=== PATIENT | male | born 1945 | race Caucasian/White ===

== ENCOUNTER 2018-05-17 12:56 | Inpatient (IN) ==
[2018-05-17] MEDS ORDERED: 0.9 % Sodium Chloride 1,000 ML IVC ONE (13:11)
[2018-05-17] MEDS ORDERED: Vancomycin 1,000 MG VIAL IVPB ONE (13:11)
[2018-05-17] MEDS ORDERED: Piperacillin/Tazobactam 3.375 GM in 0.9 % Sodium Chloride Mini Bag 100 ML IVPB ONE (13:11)
[2018-05-17] MEDS ORDERED: Isovue-370 500 ML INFUS..BTL IV ONE (13:11)
[2018-05-17 13:40] LABS: Basophils % 0.3 %; Eosinophils # 0.3 K/mcL (0.0-0.6); Eosinophils % 2.7 %; Hematocrit 44.7 % (37.5-50.1); Hemoglobin 15.6 g/dL (12.9-16.9); Immature Granulocytes % 0.2 % (0-4); Lymphocytes # 3.7 K/mcL (0.6-4.6); Lymphocytes % 40.1 %; Mean Corpuscular HGB Conc 34.9 g/dL (31.6-35.5); Mean Corpuscular Hemoglobin 30.2 pg (28.0-33.3); Mean Corpuscular Volume 86.6 fL (83.0-100.0); Mean Platelet Volume 9.6 fL (9.4-12.4); Monocytes # 0.8 K/mcL (0.0-1.3); Monocytes % 8.9 %; Neutrophils # 4.5 K/mcL (1.6-8.9); Platelet Count 221 K/mcL (140-400); Red Blood Count 5.16 M/mcL (4.19-5.50); Red Cell Distribution Width 13.5 % (11.5-14.5); Segmented Neutrophils % 47.8 %
[2018-05-17 13:56] LABS: BUN/Creatinine Ratio 26 (6-26); Blood Urea Nitrogen 21 mg/dL (8-23); Calcium 9.7 mg/dL (8.6-10.3); Carbon Dioxide 25 mEq/L (23-29); Chloride 103 mEq/L (98-107); Glucose 141 mg/dL (70-105); Osmolality,Calculated 283 (280-300); Potassium 4.4 mEq/L (3.5-5.1); Sodium 134 mEq/L (136-145); eGFR For Non-African Americans > 60 (> 60)
--- NOTE | 2018-05-17 14:20 | Emergency Department Note ---
Disposition Clinical Impression: Abscess of finger Qualifiers: Laterality: right Qualified Code(s): L02.511 - Cutaneous abscess of right hand Disposition: Admitted As Inpatient Condition: Good [facility] Provider[facility] - Forms: ED Satisfaction Letter Time of Disposition: 16:16 Skin/Abscess/FB HPI Chief complaint: ED Skin/Abscess/Foreign Body Stated complaint: Splinter in finger Time Seen by Provider: 05/17/18 13:01 Source: patient HPI Narrative: 73 yo male presents with foreign body in [facility] by [facility]. He was working in the yard 11 days ago and the following morning, he had a small sore area at his right 5th DIP volar aspect. He thought the hairs were infected, so he pulled the hairs out. In the days that followed, he had swelling and redness of his finger. He went to the [place] [facility] 2 days ago and was given "a shot" and an antibiotic that is "a big white pill." He states that the swelling is somewhat improved from 2 days prior, but the size of the redness continues to grow. He went to the [place] ER today, who took an x-ray of his finger nad told him he had a splinter "deep" in his finger before transferring him here. Home Medications Medication Instructions Recorded Confirmed Baclofen [Lioresal] 5 mg PO TID 05/17/18 05/17/18 Cetirizine HCl [All Day Allergy] 10 mg PO DAILY 05/17/18 05/17/18 Cholecalciferol (D-3) [Vitamin D] 1,000 unit PO DAILY 05/17/18 05/17/18 Clopidogrel [Plavix] 75 mg PO DAILY 05/17/18 05/17/18 Docusate [Colace] 200 mg PO HS 05/17/18 05/17/18 Dulaglutide [Trulicity] 0.75 mg SQ Q7D 05/17/18 05/17/18 Duloxetine HCl [Cymbalta] 60 mg PO BID 05/17/18 05/17/18 Fluticasone Propionate Nasal 2 spr NS DAILY 05/17/18 05/17/18 [Flonase] Gabapentin [Neurontin] 100 mg PO HS 05/17/18 05/17/18 Insulin Glargine [Lantus] 60 unit SQ QAM 05/17/18 05/17/18 Isosorbide MONOnitrate (24 HR) 30 mg PO DAILY 05/17/18 05/17/18 [Imdur] Losartan Potassium [Cozaar] 50 mg PO DAILY 05/17/18 05/17/18 Meclizine HCl [Verticalm] 25 mg PO Q6H 05/17/18 05/17/18 Metformin HCl [Glucophage] 1,000 mg PO BID 05/17/18 05/17/18 Metoprolol [Lopressor] 50 mg PO DAILY 05/17/18 05/17/18 [place]-3/Dha/Epa/Fish Oil [Fish Oil 1 cap PO DAILY 05/17/18 05/17/18 1,000 mg Softgel] Rosuvastatin [Crestor] 40 mg PO HS 05/17/18 05/17/18 Tamsulosin HCl [Flomax] 0.4 mg PO HS 05/17/18 05/17/18 Vit A/Vit C/Vit E/Zinc/Copper 1 tab PO DAILY 05/17/18 05/17/18 [Preservision Areds Tablet] hydroCHLOROthiazide 12.5 mg PO DAILY 05/17/18 05/17/18 [Hydrochlorothiazide] Allergies Allergy/AdvReac Type Severity Reaction Status Date / Time [id number] Reductase Allergy Redness of Verified 05/17/18 13:03 Inhibitor Skin Constitutional: Denies: fever, chills Gastrointestinal: Reports: constipation (chronic). Denies: abdominal pain, nausea, vomiting, diarrhea Genitourinary: Denies: dysuria Neurological: Denies: headache, weakness, confusion Past Medical History - Past Medical History Medical history: Reports: cancer, coronary artery disease, diabetes, myocardial infarction Psychiatric history: Reports: no psych history - Social History Smoking Status: Former smoker Alcohol use: Reports: none Drug use: Reports: none Physical Exam - General Limitations: no limitations General appearance: alert, in no apparent distress - Head Head exam: atraumatic, normocephalic, normal inspection - Eye Eye exam: Present: normal appearance - ENT ENT exam: mucous membranes moist - Neck Neck exam: Present: normal inspection - Chest Chest inspection: Present: normal inspection - Respiratory Respiratory exam: Present: normal lung sounds bilaterally - Cardiovascular Cardiovascular exam: Present: regular rate, normal rhythm, normal heart sounds - Abdominal Exam Abdominal exam: Present: soft, Non-Tender. Absent: tenderness, distention, guarding, rebound, rigidity - Extremities Exam Extremities exam: Present: other (posterior tibial pulses +2/4 bilateral). Absent: pedal edema - Expanded Upper Extremity Exam Hand exam: Present: tenderness (right 5th digit), swelling (right 5th digit), erythema (volar aspect of right 5th digit ), other (small (2-3mm) ulceration following patient removal of purulence at right 5th DIP volar aspect). Absent: normal inspection - Neurological Exam Neurological exam: Present: alert, oriented X3 - Psychiatric Psychiatric exam: Present: normal affect, normal mood Course Course Narrative: 73 yo male with 10 day history of sore to right 5th DIP. Over the course of 10 days he has had progressive erythema and swelling. He was seen at [facility] days ago and given a shot and started on oral antibiotics, but the erythema continued to worsen. No palpable abscess. CT of hand negative for foreign body. Plan to admit to hospital for IV antibiotics. Spoke to Dr. Gustafson, hand surgery, who agrees with plan of IV antibiotics and will see patient in consulation. Spoke to Dr. Rolle, hospitalist, who agrees to admit patient. - Consultations Consultation #1: Spoke to hand surgeon, Dr. Gustafson, who stated to admit to the patient for IV antibiotics and he would see the patient in consultation. Time: 16:08 Vital Signs Temperature 97.6 F 05/17/18 13:01 Pulse Rate 67 05/17/18 13:01 Respiratory Rate 18 05/17/18 13:01 Blood Pressure 120/69 05/17/18 13:01 O2 Sat by Pulse Oximetry 97 05/17/18 13:01 Temperature 97.6 F 05/17/18 13:07 Pulse Rate 67 05/17/18 13:07 Respiratory Rate 18 05/17/18 13:07 Blood Pressure 120/69 05/17/18 13:07 O2 Sat by Pulse Oximetry 97 05/17/18 13:07 Oxygen Delivery Oxygen Delivery Room Air Skin/Abscess/Foreign Body - Lab Data Result diagrams: 05/17/18 13:27 05/17/18 13:27 Lab Results 05/17/18 05/17/18 Range/Units 13:27 13:27 WBC 9.3 (4.3-11.1) K/mcL RBC 5.16 (4.19-5.50) M/mcL Hgb 15.6 (12.9-16.9) g/dL Hct 44.7 (37.5-50.1) % MCV 86.6 (83.0-100.0) fL MCH 30.2 (28.0-33.3) pg MCHC 34.9 (31.6-35.5) g/dL RDW 13.5 (11.5-14.5) % Plt Count 221 (140-400) K/mcL MPV 9.6 (9.4-12.4) fL Immature Gran % 0.2 (0-4) % Seg Neutrophils % 47.8 % Lymphocytes % 40.1 % Monocytes % 8.9 % Eosinophils % 2.7 % Basophils % 0.3 % Neutrophils # 4.5 (1.6-8.9) K/mcL Lymphocytes # 3.7 (0.6-4.6) K/mcL Monocytes # 0.8 (0.0-1.3) K/mcL Eosinophils # 0.3 (0.0-0.6) K/mcL Basophils # 0.0 (0.0-0.2) K/mcL Sodium 134 L (136-145) mEq/L Potassium 4.4 (3.5-5.1) mEq/L Chloride 103 (98-107) mEq/L Carbon Dioxide 25 (23-29) mEq/L BUN 21 (8-23) mg/dL Creatinine 0.81 (0.70-1.30) mg/dL Est GFR ( Amer) > 60 (> 60) Est GFR (Non-Af Amer) > 60 (> 60) BUN/Creatinine Ratio 26 (6-26) Glucose 141 H (70-105) mg/dL Calculated Osmolality 283 (280-300) Calcium 9.7 (8.6-10.3) mg/dL
--- NOTE | 2018-05-17 14:24 | Emergency Department Note ---
Disposition Clinical Impression: Abscess of finger Qualifiers: Laterality: right Qualified Code(s): L02.511 - Cutaneous abscess of right hand Disposition: Admitted As Inpatient [facility] [Primary Care Provider[facility] - General Adult HPI - General Chief complaint: ED Skin/Abscess/Foreign Body Stated complaint: Splinter in finger Time Seen by Provider: 05/17/18 13:01 Source: patient - History of Present Illness Pain Scale: 5 - Related Data Home Medications Medication Instructions Recorded Confirmed Baclofen [Lioresal] 5 mg PO TID 05/17/18 05/17/18 Cetirizine HCl [All Day Allergy] 10 mg PO DAILY 05/17/18 05/17/18 Cholecalciferol (D-3) [Vitamin D] 1,000 unit PO DAILY 05/17/18 05/17/18 Clopidogrel [Plavix] 75 mg PO DAILY 05/17/18 05/17/18 Docusate [Colace] 200 mg PO HS 05/17/18 05/17/18 Dulaglutide [Trulicity] 0.75 mg SQ Q7D 05/17/18 05/17/18 Duloxetine HCl [Cymbalta] 60 mg PO BID 05/17/18 05/17/18 Fluticasone Propionate Nasal 2 spr NS DAILY 05/17/18 05/17/18 [Flonase] Gabapentin [Neurontin] 100 mg PO HS 05/17/18 05/17/18 Insulin Glargine [Lantus] 60 unit SQ QAM 05/17/18 05/17/18 Isosorbide MONOnitrate (24 HR) 30 mg PO DAILY 05/17/18 05/17/18 [Imdur] Losartan Potassium [Cozaar] 50 mg PO DAILY 05/17/18 05/17/18 Meclizine HCl [Verticalm] 25 mg PO Q6H 05/17/18 05/17/18 Metformin HCl [Glucophage] 1,000 mg PO BID 05/17/18 05/17/18 Metoprolol [Lopressor] 50 mg PO DAILY 05/17/18 05/17/18 [place]-3/Dha/Epa/Fish Oil [Fish Oil 1 cap PO DAILY 05/17/18 05/17/18 1,000 mg Softgel] Rosuvastatin [Crestor] 40 mg PO HS 05/17/18 05/17/18 Tamsulosin HCl [Flomax] 0.4 mg PO HS 05/17/18 05/17/18 Vit A/Vit C/Vit E/Zinc/Copper 1 tab PO DAILY 05/17/18 05/17/18 [Preservision Areds Tablet] hydroCHLOROthiazide 12.5 mg PO DAILY 05/17/18 05/17/18 [Hydrochlorothiazide] Allergies Allergy/AdvReac Type Severity Reaction Status Date / Time Mjeujek-Osg-Fhs Reductase Allergy Redness of Verified 05/17/18 13:03 Inhibitor Skin Past Medical History - Past Medical History Medical history: Reports: cancer, coronary artery disease, diabetes, myocardial infarction Psychiatric history: Reports: no psych history - Social History Smoking Status: Former smoker Alcohol use: Reports: none Drug use: Reports: none Course Vital Signs Temperature 97.6 F 05/17/18 13:01 Pulse Rate 67 05/17/18 13:01 Respiratory Rate 18 05/17/18 13:01 Blood Pressure 120/69 05/17/18 13:01 O2 Sat by Pulse Oximetry 97 05/17/18 13:01 Temperature 97.6 F 05/17/18 13:07 Pulse Rate 67 05/17/18 13:07 Respiratory Rate 18 05/17/18 13:07 Blood Pressure 120/69 05/17/18 13:07 O2 Sat by Pulse Oximetry 97 05/17/18 13:07 Oxygen Delivery Oxygen Delivery Room Air Medical Decision Making - Lab Data Result diagrams: 05/17/18 13:27 05/17/18 13:27 Lab Results 05/17/18 05/17/18 Range/Units 13:27 13:27 WBC 9.3 (4.3-11.1) K/mcL RBC 5.16 (4.19-5.50) M/mcL Hgb 15.6 (12.9-16.9) g/dL Hct 44.7 (37.5-50.1) % MCV 86.6 (83.0-100.0) fL MCH 30.2 (28.0-33.3) pg MCHC 34.9 (31.6-35.5) g/dL RDW 13.5 (11.5-14.5) % Plt Count 221 (140-400) K/mcL MPV 9.6 (9.4-12.4) fL Immature Gran % 0.2 (0-4) % Seg Neutrophils % 47.8 % Lymphocytes % 40.1 % Monocytes % 8.9 % Eosinophils % 2.7 % Basophils % 0.3 % Neutrophils # 4.5 (1.6-8.9) K/mcL Lymphocytes # 3.7 (0.6-4.6) K/mcL Monocytes # 0.8 (0.0-1.3) K/mcL Eosinophils # 0.3 (0.0-0.6) K/mcL Basophils # 0.0 (0.0-0.2) K/mcL Sodium 134 L (136-145) mEq/L Potassium 4.4 (3.5-5.1) mEq/L Chloride 103 (98-107) mEq/L Carbon Dioxide 25 (23-29) mEq/L BUN 21 (8-23) mg/dL Creatinine 0.81 (0.70-1.30) mg/dL Est GFR ( Amer) > 60 (> 60) Est GFR (Non-Af Amer) > 60 (> 60) BUN/Creatinine Ratio 26 (6-26) Glucose 141 H (70-105) mg/dL Calculated Osmolality 283 (280-300) Calcium 9.7 (8.6-10.3) mg/dL Attestation Statement - Attestation Attestation: I examined this patient and my medical decision-making was reviewed with the Resident Physician. I agree with the documented findings, disposition and treatment plan as described except to the extent set forth below. 73 year old male [facility] and believes there is a wooden gilda in the finger and states that this occured a few days ago while he was mowing his lawn. HE is a diabetic wihtout history of MRSA. Patient states that he has been on outpatinet therapy with antbiotics and it is getting worse. WE will do a CT with focused infectious workup and then consult hand surgery and admit. vanco/zosyn started with fluids
[2018-05-17] MEDS ORDERED: *HR* OxyCODONE Immed Rel 5 MG TABLET PO PRN (17:52)
[2018-05-17] MEDS ORDERED: traMADol 50 MG TABLET PO PRN (17:52)
[2018-05-17] MEDS ORDERED: Acetaminophen 325 MG TABLET PO PRN (17:52)
[2018-05-17] MEDS ORDERED: Naloxone 0.4 MG/ML INJ IVP PRN (17:52)
[2018-05-17] MEDS ORDERED: D5% in Water 1,000 ML IVC PRN (17:55)
[2018-05-17] MEDS ORDERED: *HR* Dextrose 50 % in Water (Syg) 50 ML SYRINGE IVP PRN (17:55)
[2018-05-17] MEDS ORDERED: Dextrose Gel 15 GM/37.5 ML TUBE PO PRN ×2 (17:55)
--- NOTE | 2018-05-17 17:57 | Internal Med History&Physical ---
Date of Encounter: 05/17/18 Time of Encounter: 17:57 Internal Medicine - H&P: HPI Chief complaint: Right 5th finger infection Admitted From: Emergency Dept Plans for Post Hospital Care: Home History of present illness: Mr. Martínez is a 73 year old male with history of hypertension, diabetes, CAD , who presents with complaints of pain and swelling in right fifth finger. Patient was working in his yard about 8-9 days ago, when he thought he pricked his right 5th finger. Following this, he noticed a small pimple-like swelling over the middle of his finger, which has been getting bigger with associated redness and pain. No drainage noted until today, when it started leaking serous purulent fluid. No associated fever, chills, nausea, vomiting. No chest pain or shortness of breath or any other complaints. He has been able to open and close his right fifth finger, no loss of sensation or bluish discoloration of his finger. He presented to urgent care at the [facility] 2 days ago, received an intramuscular injection and was discharged on oral antibiotics, he does not remember the name. X-ray done on that day was apparently normal. He was asked to come back for a recheck today, repeat x-ray showed a possible foreign body embedded in fifth finger soft tissue and he was sent to our emergency room for further workup. Past Med Surg Social Fam HX - Past Medical History Source: patient Medical history: cancer (Prostate cancer), coronary artery disease, diabetes, hypertension, myocardial infarction Additional medical history: prostate ca Psychiatric history: no psych history - Past Surgical History Surgical History: knee replacement (Bilateral total knee replacement), orthopedic, other (Bilateral shoulder replacement), prostatectomy - Social History Smoking Status: Former smoker Alcohol use: none Drug use: none Occupational status: retired Current living situation: Home, With Family Activity Level: Independent ambulation Recent Out of Country Travel Within the Last 8 Weeks: No Exposure or Possible Exposure to Illness During Travel: No - Family History Father Hx Family Cancer: Yes (lung cancer) Hx Family Endocrine Disorder: Yes (DM) Internal Medicine - H&P: Meds Baclofen [Lioresal] 5 mg PO TID 05/17/18 [History] Cetirizine HCl [All Day Allergy] 10 mg PO DAILY 05/17/18 [History] Cholecalciferol (D-3) [Vitamin D] 1,000 unit PO DAILY 05/17/18 [History] Clopidogrel [Plavix] 75 mg PO DAILY 05/17/18 [History] Docusate [Colace] 200 mg PO HS 05/17/18 [History] Dulaglutide [Trulicity] 0.75 mg SQ Q7D 05/17/18 [History] Duloxetine HCl [Cymbalta] 60 mg PO BID 05/17/18 [History] Fluticasone Propionate Nasal [Flonase] 2 spr NS DAILY 05/17/18 [History] Gabapentin [Neurontin] 100 mg PO HS 05/17/18 [History] Insulin Glargine [Lantus] 60 unit SQ QAM 05/17/18 [History] Isosorbide MONOnitrate (24 HR) [Imdur] 30 mg PO DAILY 05/17/18 [History] Losartan Potassium [Cozaar] 50 mg PO DAILY 05/17/18 [History] Meclizine HCl [Verticalm] 25 mg PO Q6H 05/17/18 [History] Metformin HCl [Glucophage] 1,000 mg PO BID 05/17/18 [History] Metoprolol [Lopressor] 50 mg PO DAILY 05/17/18 [History] [place]-3/Dha/Epa/Fish Oil [Fish Oil 1,000 mg Softgel] 1 cap PO DAILY 05/17/18 [ History] Rosuvastatin [Crestor] 40 mg PO HS 05/17/18 [History] Tamsulosin HCl [Flomax] 0.4 mg PO HS 05/17/18 [History] Vit A/Vit C/Vit E/Zinc/Copper [Preservision Areds Tablet] 1 tab PO DAILY [History] hydroCHLOROthiazide [Hydrochlorothiazide] 12.5 mg PO DAILY 05/17/18 [History] 3 Allergy/AdvReac Type Severity Reaction Status Date / Time [id number] Reductase Allergy Redness of Verified 05/17/18 13:03 Inhibitor Skin All Systems PM: A 10-system review of systems was performed and is negative for pertinent findings except as documented above in the HPI. - Constitutional Constitutional: no chills, no fever(s), no night sweats - EENT Eyes: no change in vision, no discharge, no pain, no photophobia Ears: no ear discharge, no ear pain, no tinnitus Nose, mouth and throat: no dysphagia, no nasal discharge, no neck pain, no sore throat - Cardiovascular Cardiovascular ROS IM: no chest pain, no diaphoresis, no dyspnea, no lightheadedness, no palpitations, no syncope - Respiratory Respiratory: no cough, no dyspnea, no wheezing, no excessive phlegm production - Gastrointestinal Gastrointestinal: no abdominal pain, no diarrhea, no hematemesis, no hematochezia, no melena, no nausea, no vomiting - Musculoskeletal Musculoskeletal ROS IM: limited range of motion - Integumentary Integumentary IM: as per HPI, erythema, skin ulcer - Neurological Neurological ROS: no confusion, no convulsions, no focal weakness, no numbness, no tingling, no tremor(s) - Hematologic/Lymphatic Hematologic/Lymphatic: no easy bruising - Constitutional Vitals: Temp Pulse Resp BP Pulse Ox 97.6 F 72 14 110/69 97 05/17/18 13:07 05/17/18 16:13 05/17/18 16:13 05/17/18 16:13 05/17/18 16:13 General appearance: Present: A&O X 3, answers questions appropriately Exam: . - Respiratory Respiratory exam: Present: CTAB (coarse breath sounds B/L), rhonchi ( intermittent). Absent: accessory muscle use, rales, wheezes - Cardiovascular Cardiovascular exam: Present: RRR, +S1, +S2. Absent: diastolic murmur, gallop, rubs, systolic murmur - GI/Abdominal GI/Abdominal exam: Present: normal bowel sounds, soft, no peritoneal signs. Absent: distended, tenderness - Extremities Exam Extremities exam: Present: warm, radial pulses palpable and symmetrical. Absent : calf tenderness, cyanotic, pedal edema Additional comments: right 5th finger- dorsal mid-finger around PIP joint- small open sore with significant edema, erythema and minimal seropurulent drainage; no restriction in ROM - Neurological Exam Neurological exam: Present: CN II-XII intact, oriented X3, no focal deficits. Absent: pronater drift, facial droop, speech deficit - Skin Skin exam: Present: dry, intact Internal Med - H&P Results - Labs CBC & Chem 7: 05/18/18 06:13 05/18/18 06:13 - Assessment and plan (1) Cellulitis Current Visit: Yes Status: Acute Assessment and plan: Mild cellulitis noted on dorsal right fifth finger. CT right hand done in our emergency room did not show any focal abscess or embedded foreign body. Orthopedic surgery has been consulted, follow-up recommendations. Follow up wound culture, continue IV antibiotics-vancomycin and Zosyn. Patient is very comfortable at this time, does not report pain. Pain control with when necessary Tylenol and oxycodone. Qualifiers: Site of cellulitis: extremity Site of cellulitis of extremity: finger Laterality: right Qualified Code(s): L03.011 - Cellulitis of right finger (2) Foreign body (FB) in soft tissue Current Visit: Yes Status: Suspected Assessment and plan: Plan as above. (3) CAD (coronary artery disease) Current Visit: Yes Status: Chronic Assessment and plan: Status post remote stents. Continue Plavix, statin, beta dina. Qualifiers: Coronary Disease-Associated Artery/Lesion type: [place] artery [place] vs. transplanted heart: [place] heart Associated angina: without angina Qualified Code(s): I25.10 - Atherosclerotic heart disease of [place] coronary artery without angina pectoris (4) Essential hypertension Current Visit: Yes Status: Chronic Assessment and plan: Blood pressure acceptable. Resume home medications. (5) Diabetes mellitus Current Visit: Yes Status: Chronic Assessment and plan: Blood sugars noted to be well controlled. Continue basal bolus insulin regimen. Accu-Chek blood glucose monitoring. Diabetic diet. 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
[2018-05-17] MEDS: *HR* Heparin 5,000 UNIT/ML VIAL SQ SCH (18:59)
[2018-05-17] MEDS: Baclofen 10 MG TABLET PO SCH (21:19)
[2018-05-17] MEDS: Insulin LISPRO 300 UNITS/3 ML VIAL SQ SCH (21:20)
[2018-05-17] MEDS: Gabapentin 100 MG CAPSULE PO SCH (21:20)
[2018-05-17] MEDS: Insulin DETEMIR 100 UNIT/ML X5UNITS SQ SCH (21:20)
[2018-05-18] MEDS: Piperacillin/Tazobactam 3.375 GM in 0.9 % Sodium Chloride Mini Bag 100 ML IVPB SCH ×3 (01:13→17:04)
[2018-05-18] MEDS: *HR* Heparin 5,000 UNIT/ML VIAL SQ SCH ×2 (05:23→17:05)
[2018-05-18 06:38] LABS: Basophils % 0.4 %; Eosinophils # 0.2 K/mcL (0.0-0.6); Eosinophils % 3.3 %; Hematocrit 44.9 % (37.5-50.1); Hemoglobin 15.2 g/dL (12.9-16.9); Immature Granulocytes % 0.3 % (0-4); Lymphocytes # 2.4 K/mcL (0.6-4.6); Lymphocytes % 35.3 %; Mean Corpuscular HGB Conc 33.9 g/dL (31.6-35.5); Mean Corpuscular Hemoglobin 30.2 pg (28.0-33.3); Mean Corpuscular Volume 89.3 fL (83.0-100.0); Mean Platelet Volume 10.1 fL (9.4-12.4); Monocytes # 0.8 K/mcL (0.0-1.3); Monocytes % 11.3 %; Neutrophils # 3.3 K/mcL (1.6-8.9); Platelet Count 170 K/mcL (140-400); Red Blood Count 5.03 M/mcL (4.19-5.50); Red Cell Distribution Width 13.4 % (11.5-14.5); Segmented Neutrophils % 49.4 %
[2018-05-18 06:51] LABS: BUN/Creatinine Ratio 22 (6-26); Blood Urea Nitrogen 19 mg/dL (8-23); Calcium 9.2 mg/dL (8.6-10.3); Carbon Dioxide 25 mEq/L (23-29); Chloride 103 mEq/L (98-107); Glucose 147 mg/dL (70-105); Osmolality,Calculated 287 (280-300); Potassium 3.9 mEq/L (3.5-5.1); Sodium 136 mEq/L (136-145); eGFR For Non-African Americans > 60 (> 60)
[2018-05-18] MEDS: Insulin LISPRO 300 UNITS/3 ML VIAL SQ SCH ×4 (10:59→20:45)
[2018-05-18] MEDS: hydroCHLOROthiazide 25 MG TABLET PO SCH (11:01)
[2018-05-18] MEDS: Isosorbide MONOnitrate (24 HR) 30 MG TAB.ER.24H PO SCH (11:01)
[2018-05-18] MEDS: Baclofen 10 MG TABLET PO SCH ×3 (11:01→20:44)
[2018-05-18] MEDS: Insulin DETEMIR 100 UNIT/ML X5UNITS SQ SCH ×2 (11:03→20:44)
[2018-05-18] MEDS: Fluticasone Propionate Nasal 50 MCG/SPRAY BOTTLE NS SCH (11:03)
--- NOTE | 2018-05-18 13:42 | Internal Med Progress Note ---
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 CT right hand done in our emergency room did not show any focal abscess or embedded foreign body. Orthopedic surgery has been consulted, pending recommendations. Preliminary wound culture grows staph aureus, f/uo sensitivity, continue IV antibiotics- vancomycin and Zosyn. Pain control with when necessary Tylenol and oxycodone. (2) Foreign body (FB) in soft tissue Current Visit: Yes Status: Suspected (3) CAD (coronary artery disease) Current Visit: Yes Status: Chronic Assessment and Plan: Status post remote stents. Continue Plavix, statin, beta dina. (4) Essential hypertension Current Visit: Yes Status: Chronic Assessment and Plan: Blood pressure acceptable. continue home medications. (5) Diabetes mellitus Current Visit: Yes Status: Chronic Assessment and Plan: Blood sugars noted to be fairly controlled. Continue basal bolus insulin regimen. Accu-Chek blood glucose monitoring. Diabetic diet. - Time Spent with Patient Total time spent is greater than 50% in coordination of care (as documented) at patient's floor/unit and/or counseling patient: Plan of Care Discussed with: patient Internal Medicine: Result - Labs CBC & Chem 7: 05/18/18 06:13 05/18/18 06:13 Labs: Short CBC 05/18/18 Range/Units 06:13 WBC 6.7 (4.3-11.1) K/mcL Hgb 15.2 (12.9-16.9) g/dL Hct 44.9 (37.5-50.1) % Plt Count 170 (140-400) K/mcL Neutrophils # 3.3 (1.6-8.9) K/mcL BMP 05/18/18 06:13 Sodium 136 Potassium 3.9 Chloride 103 Carbon Dioxide 25 BUN 19 Creatinine 0.87 Glucose 147 H Calcium 9.2 Consult Discharge Plan - Plan Referrals: [facility] [Outside] (1) Cellulitis Qualifiers: Site of cellulitis: extremity Site of cellulitis of extremity: finger Laterality: right Qualified Code(s): L03.011 - Cellulitis of right finger (3) CAD (coronary artery disease) Qualifiers: Coronary Disease-Associated Artery/Lesion type: [place] artery [place] vs. transplanted heart: [place] heart Associated angina: without angina Qualified Code(s): I25.10 - Atherosclerotic heart disease of [place] coronary artery without angina pectoris (5) Diabetes mellitus Qualifiers: Diabetes mellitus type: type 2 Diabetes mellitus terminal manager insulin use: with penitentiary use Diabetes mellitus complication status: with unspecified complications Qualified Code(s): E11.8 - Type 2 diabetes mellitus with unspecified complications; Z79.4 - long-term (current) use of insulin
--- NOTE | 2018-05-18 14:11 | Orthopedic Consult Note ---
Date of Encounter: 05/18/18 Time of Encounter: 13:00 Assessment and Plan (1) Cellulitis Current Visit: Yes Status: Acute CT showed no abscess formation and no foreign bodies. Continue observation for now with no surgical intervention planned as of now. Continue ROM as tolerated. Will order OT to work with patient. Begin local wound care washing with soap/water 2-3xdaily and apply dry gauze dressings each time until closed. Begin elevation of RUE. Wound culture - preliminary staph aureus Continue IV abx per hospitalist. Orthopedics will reevaluate again tomorrow. Qualifiers: Site of cellulitis: extremity Site of cellulitis of extremity: finger Laterality: right Qualified Code(s): L03.011 - Cellulitis of right finger History of Present Illness Chief complaint: right 5th finger pain and swelling HPI: Mr. Martínez is a 73 year old male who presented to the ER yesterday with increased swelling and pain to the right 5th finger. He admits to a "pimple" like area forming roughly 10 days ago which he popped and got a small amount of pus expressed. The next day started to have increased redness and swelling that have continued to worsen. The opening did scab over but then opened again a couple days later and has been draining small amount serous/purulent drainage. He recently started to notice skin peeling around this area as well. Pain described as dull that comes/goes, does radiate from finger towards hand but not into wrist but has improved some since it has been draining and feels like less pressure since then. He denies any known injury and can only think that he was weeding around that time and did get pricked by a plant. He did go to the [place] [facility] 3 days ago and was started on some antibiotic he cant remember the name of. Denies any numbness or tingling to hand or finger. Denies any other symptoms at this time, denies chest pain, SOB, fevers. He is right hand dominant. Past Med Surg Social Fam HX - Past Medical History Medical history: cancer (Prostate cancer), coronary artery disease, diabetes, hypertension, myocardial infarction Additional medical history: prostate ca Psychiatric history: no psych history - Past Surgical History Surgical History: knee replacement (Bilateral total knee replacement), orthopedic, other (Bilateral shoulder replacement), prostatectomy - Social History Smoking Status: Former smoker Alcohol use: none Drug use: none - Family History Father Hx Family Cancer: Yes (lung cancer) Hx Family Endocrine Disorder: Yes (DM) Medications and Allergies Baclofen [Lioresal] 5 mg PO TID 05/17/18 [History] Cetirizine HCl [All Day Allergy] 10 mg PO DAILY 05/17/18 [History] Cholecalciferol (D-3) [Vitamin D] 1,000 unit PO DAILY 05/17/18 [History] Clopidogrel [Plavix] 75 mg PO DAILY 05/17/18 [History] Docusate [Colace] 200 mg PO HS 05/17/18 [History] Dulaglutide [Trulicity] 0.75 mg SQ Q7D 05/17/18 [History] Duloxetine HCl [Cymbalta] 60 mg PO BID 05/17/18 [History] Fluticasone Propionate Nasal [Flonase] 2 spr NS DAILY 05/17/18 [History] Gabapentin [Neurontin] 100 mg PO HS 05/17/18 [History] Insulin Glargine [Lantus] 60 unit SQ QAM 05/17/18 [History] Isosorbide MONOnitrate (24 HR) [Imdur] 30 mg PO DAILY 05/17/18 [History] Losartan Potassium [Cozaar] 50 mg PO DAILY 05/17/18 [History] Meclizine HCl [Verticalm] 25 mg PO Q6H 05/17/18 [History] Metformin HCl [Glucophage] 1,000 mg PO BID 05/17/18 [History] Metoprolol [Lopressor] 50 mg PO DAILY 05/17/18 [History] [place]-3/Dha/Epa/Fish Oil [Fish Oil 1,000 mg Softgel] 1 cap PO DAILY 05/17/18 [ History] Rosuvastatin [Crestor] 40 mg PO HS 05/17/18 [History] Tamsulosin HCl [Flomax] 0.4 mg PO HS 05/17/18 [History] Vit A/Vit C/Vit E/Zinc/Copper [Preservision Areds Tablet] 1 tab PO DAILY [History] hydroCHLOROthiazide [Hydrochlorothiazide] 12.5 mg PO DAILY 05/17/18 [History] 3 Allergy/AdvReac Type Severity Reaction Status Date / Time Ohaefvj-[id number]-Juh Reductase Allergy Redness of Verified 05/17/18 13:03 Inhibitor Skin All Systems Reviewed: The remainder of the systems were reviewed and are negative - Constitutional Constitutional: as per HPI - Cardiovascular Cardiovascular: as per HPI - Respiratory Respiratory: as per HPI - Musculoskeletal Musculoskeletal: as per HPI Physical Exam - Constitutional Vitals: Temp Pulse Resp BP Pulse Ox 97.8 F 75 15 153/84 95 05/18/18 10:29 05/18/18 10:29 05/18/18 10:29 05/18/18 10:29 05/18/18 10:29 - Wrist & Hand right Location of pain: small finger (erythema and swelling noted to dorsal small finger over proximal and middle phalanx which does not reach the DIPJ or MCPJ with skin sloughing and small opening over middle phalanx with small amount purulent drainage. Mild tenderness to palpation on dorsal side of finger. No tenderness to palpation on volar side of finger. No palpable fluctuancefull active extension and almost full active flexion of small finger with minimal stiffness. brisk cap refill distally, grossly NV intact. ) Results - Labs Result Diagrams: 05/18/18 06:13 05/18/18 06:13 Labs: Abnormal lab results Glucose 147 mg/dL (70-105) H 05/18/18 06:13 POC Glucose 177 mg/dL (70-99) H 05/18/18 08:03 H & H 05/18/18 Range/Units 06:13 Hgb 15.2 (12.9-16.9) g/dL Hct 44.9 (37.5-50.1) % All other labs normal. - Diagnostic results Wrist/Hand CT: report reviewed, image reviewed Consult Discharge Plan - Plan Referrals: [facility] [Outside] - Attending Attestation Case and plan of care discussed with supervising physician who was available for all aspects of care.
[2018-05-18] MEDS: Gabapentin 100 MG CAPSULE PO SCH (20:44)
[2018-05-19] MEDS: Piperacillin/Tazobactam 3.375 GM in 0.9 % Sodium Chloride Mini Bag 100 ML IVPB SCH ×2 (00:38→08:52)
[2018-05-19] MEDS: *HR* Heparin 5,000 UNIT/ML VIAL SQ SCH (05:34)
[2018-05-19] MEDS: Isosorbide MONOnitrate (24 HR) 30 MG TAB.ER.24H PO SCH (08:48)
[2018-05-19] MEDS: hydroCHLOROthiazide 25 MG TABLET PO SCH (08:48)
[2018-05-19] MEDS: Baclofen 10 MG TABLET PO SCH (08:48)
[2018-05-19] MEDS: Insulin DETEMIR 100 UNIT/ML X5UNITS SQ SCH (08:50)
[2018-05-19] MEDS: Insulin LISPRO 300 UNITS/3 ML VIAL SQ SCH ×2 (08:51→11:35)
[2018-05-19] MEDS: Fluticasone Propionate Nasal 50 MCG/SPRAY BOTTLE NS SCH (08:55)
[2018-05-19 10:07] VITALS: BP 116/72
--- NOTE | 2018-05-19 11:13 | Orthopedics Progress Note ---
Date of Encounter: 05/19/18 Time of Encounter: 11:10 Subjective Principal diagnosis: Right small finger dorsal abscess Interval history: Patient reports improvement in the finger. He states yesterday he is able to express a fair amount of pus with dressing changes but none this morning Right hand: Violaceous erythema on dorsum of small finger PIP joint. The small distal opening was closed with a fibrinous plug. This was removed and one drop of pus was expressed. The patient has full range of motion of the digit. There is minimal tenderness. No proximal streaking erythema. The volar pad is good capillary fill Assessment: Right small finger cellulitis with small abscess that is improving WBC is down Cx: + MRSA Plan: I recommend continue local wound care with soap water washes 3 times a day and dry dressing changes. The patient was encouraged to continue doing active range of motion exercises Patient may be discharged on by mouth antibiotics Follow-up on Wednesday with June Patterson PA-C Objective Vital signs: Vital Signs Temp Pulse Resp BP Pulse Ox 05/19/18 10:06 97.7 F 62 15 116/72 95 05/19/18 06:50 97.6 F 67 15 127/72 94 05/19/18 04:42 97.7 F 60 16 141/64 95 05/18/18 20:43 97.7 F 62 16 118/63 94 05/18/18 14:26 97.5 F L 65 14 106/63 95 Intake and Output 05/18/18 05/19/18 05/19/18 23:59 07:59 15:59 Intake Total 710 / 710 350 / 350 360 / 360 Output Total 1000 / 1000 1100 / 1100 300 / 300 Balance -290 / -290 -750 / -750 60 / 60 Intake: IV Fluids 350 / 350 350 / 350 Zosyn 3.375 GM In 0.9 % Sodium 100 / 100 100 / 100 Chloride (Mini-Bag +) 100 ML @ 25 mls/hr IVPB Q8HR [facility]LAF Rx#: [id number] Vancocin 1,500 MG In 0.9 % 250 / 250 250 / 250 Sodium Chloride 250 ML @ 166.67 mls/hr IVPB Q12H OLAF Rx#: [id number] Oral 360 / 360 0 / 0 360 / 360 Output: Urine 1000 / 1000 1100 / 1100 300 / 300 Other: Meal Dinner Breakfast Percent of Meal Consumed 100% 100% # Bowel Movements 0 Weight 110.6 kg Blood Glucose* 203 146 169 Patient Weight 05/19/18 23:59 Weight 110.6 kg - Labs CBC & BMP: 05/18/18 06:13 05/18/18 06:13 Labs: Abnormal lab results Glucose 147 mg/dL (70-105) H 05/18/18 06:13 POC Glucose 126 mg/dL (70-99) H 05/18/18 16:50 Vancomycin Trough 13 mcg/mL (5-10) H 05/19/18 03:06 Consult Discharge Plan - Plan Referrals: [facility] [Outside] June Patterson, PAC [Physician Typists Supervisor] - 05/23/18 10:45 am
--- NOTE | 2018-05-19 14:01 | Discharge Summary ---
Orders not resulted at time of discharge: Pending orders 05/18/18 12:33 Gram Stain [RM] Routine 05/20/18 15:00 Vancomycin,Trough Timed Date of Encounter: 05/19/18 Time of Encounter: 13:57 - Discharge Diagnosis (1) Cellulitis Priority: Primary Status: Acute Assessment and Plan: Cellulitis. And right is small finger abscess. ESR of 15. Mild erythema, no tenderness, no warmth to touch. Full range of motion Qualifiers: Site of cellulitis: extremity Site of cellulitis of extremity: finger Laterality: right Qualified Code(s): L03.011 - Cellulitis of right finger (2) CAD (coronary artery disease) Priority: Secondary Status: Chronic Qualifiers: Coronary Disease-Associated Artery/Lesion type: [place] artery [place] vs. transplanted heart: [place] heart Associated angina: without angina Qualified Code(s): I25.10 - Atherosclerotic heart disease of [place] coronary artery without angina pectoris (3) Essential hypertension Priority: Secondary Status: Chronic (4) Diabetes mellitus Priority: Secondary Status: Chronic Qualifiers: Diabetes mellitus type: type 2 Diabetes mellitus remote computer terminal operator insulin use: with [facility] use Diabetes mellitus complication status: with unspecified complications Qualified Code(s): E11.8 - Type 2 diabetes mellitus with unspecified complications; Z79.4 - remote computer terminal operator (current) use of insulin Hospital course: Mr. Martínez is a 73 year old male past medical history diabetes, hypertension , presented to the emergency room due to right small finger cellulitis with a small abscess in the dorsum of the finger. Patient treated with IV antibiotic for MRSA and pseudomonal coverage. Cultures of the wound came back positive for MRSA. Cellulitis improved, he should have full range of motion, able to close her his hand and make a fist. Hand surgeon so the patient and recommended local wound care washing with soap/water 2-3xdaily and apply dry gauze dressings each time until closed. Patient is clinically stable to be discharge. Commended to follow-up. The hand surgeon within a week. Appointment has been made Discharge discussed with: patient, nurse - Time Spent with Patient Total time spent providing and/or coordinating discharge services: Greater than 30 minutes - Discharge Medications Prescriptions: Clindamycin HCl 300 mg PO Q12HR 6 Days #12 capsule Home Medications: Baclofen [Lioresal] 5 mg PO TID 05/17/18 [History] Cetirizine HCl [All Day Allergy] 10 mg PO DAILY 05/17/18 [History] Cholecalciferol (D-3) [Vitamin D] 1,000 unit PO DAILY 05/17/18 [History] Clopidogrel [Plavix] 75 mg PO DAILY 05/17/18 [History] Docusate [Colace] 200 mg PO HS 05/17/18 [History] Dulaglutide [Trulicity] 0.75 mg SQ Q7D 05/17/18 [History] Duloxetine HCl [Cymbalta] 60 mg PO BID 05/17/18 [History] Fluticasone Propionate Nasal [Flonase] 2 spr NS DAILY 05/17/18 [History] Gabapentin [Neurontin] 100 mg PO HS 05/17/18 [History] Insulin Glargine [Lantus] 60 unit SQ QAM 05/17/18 [History] Isosorbide MONOnitrate (24 HR) [Imdur] 30 mg PO DAILY 05/17/18 [History] Losartan Potassium [Cozaar] 50 mg PO DAILY 05/17/18 [History] Meclizine HCl [Verticalm] 25 mg PO Q6H 05/17/18 [History] Metformin HCl [Glucophage] 1,000 mg PO BID 05/17/18 [History] Metoprolol [Lopressor] 50 mg PO DAILY 05/17/18 [History] [place]-3/Dha/Epa/Fish Oil [Fish Oil 1,000 mg Softgel] 1 cap PO DAILY 05/17/18 [ History] Rosuvastatin [Crestor] 40 mg PO HS 05/17/18 [History] Tamsulosin HCl [Flomax] 0.4 mg PO HS 05/17/18 [History] Vit A/Vit C/Vit E/Zinc/Copper [Preservision Areds Tablet] 1 tab PO DAILY [History] hydroCHLOROthiazide [Hydrochlorothiazide] 12.5 mg PO DAILY 05/17/18 [History] Clindamycin HCl 300 mg PO Q12HR 6 Days #12 capsule 05/19/18 [Rx] Metoprolol [Lopressor] 50 mg PO DAILY tablet 05/19/18 [Rx] Allergies/Adverse Reactions: 3 Allergy/AdvReac Type Severity Reaction Status Date / Time [id number] Reductase Allergy Redness of Verified 05/17/18 13:03 Inhibitor Skin Date of admission: 05/17/18 18:17 [facility] care physician[facility] Consults: 05/18/18 14:14 Consult to Occupational Therapy [CONS] Routine Comment: Evaluate, develop and implement POC Reason for Consult: right small finger infection - work on ROM as tolerated Does patient have active BEDREST order?: No Is patient medically & hemodynamically stable?: Yes Patient assessed for mobility or mobilized this visit?: No - Constitutional Vitals: Temp Pulse Resp BP Pulse Ox 97.7 F 62 15 116/72 95 05/19/18 10:06 05/19/18 10:06 05/19/18 10:06 05/19/18 10:06 05/19/18 10:06 General appearance: Present: A&O X 3, answers questions appropriately Exam: General: Alert and oriented HEENT:EOM, pupils equal, round and reactive. Cardiovascular:Normal S1 & S2, no rubs, murmurs or gallops. No JVD. Pulse regular. Lungs:Normal breath sounds, no wheezes or crackles. Abdomen:Soft, non-tender, no rigidity. Extremities: Bilateral knee replacement,Right hand: Violaceous erythema on dorsum of small finger PIP joint. Neurological:Normal cognition and motor skills. Pulses:Carotid and radial pulses normal +2. Rest of the physical exam is non contributory - Patient Status Disposition: Home, Self-Care Condition: Good Functional capacity at discharge: independent ambulation Overall status at discharge: patient is back to baseline - Discharge Instructions Follow Up With: June Patterson, PAC [Physician Financial Advocate] - 05/23/18 10:45 am - Diet and Activity Activity: increase activity as tolerated Diet: advance to your usual diet, diabetic diet
[2018-05-19] MEDS ORDERED: Aminoglycoside Consult 1 EACH MC ONE (15:30)
== END 2018-05-19 15:31 | disposition home or self-care (01) | DRG 603 ==
LOC: 3ANU 12:56 → EMEROOARM 12:56 → 3ANU 17:52 → SUATTDRO 18:17
PROVIDERS: ADMIT Internal Medicine; ATTEND Internal Medicine